=== PATIENT | male | born 1930 | race Caucasian/White ===

== ENCOUNTER 2017-04-25 14:34 | Emergency (ER) | payer MEDICARE, OTHER ==
[~2017-04-25] VITALS: Ht 172.7 cm; Wt 70.0 kg
[~2017-04-25 14:34] MED LIST: PRED5DRO7 RIGHTEYE; TIMO15DR12 RIGHTEYE
[2017-04-25] MEDS ORDERED: IPRATROPIUM BROMIDE (0.02%) 0.5MG/2.5ML NEB HHN STA (15:01)
[2017-04-25] MEDS ORDERED: ALBUTEROL (0.083%) 2.5MG/3ML NEB HHN STA (15:01)
[2017-04-25 15:25] LABS: HEMATOCRIT. 37.8 % (42.0-52.0); HEMOGLOBIN. 12.8 g/dL (14.0-18.0); MEAN CORPUSCULAR HEMOGLOBIN 33.2 pg (28.0-32.0); MEAN CORPUSCULAR VOLUME 97.7 fL (80.0-94.0); MEAN PLATELET VOLUME 7.2 fl (7.4-10.4); PLATELET 206 x1000/uL (130-400); RED BLOOD CELL COUNT 3.87 mill/uL (4.7-6.1); RED CELL DISTRIBUTION WIDTH 14.2 % (11.6-14.6)
[2017-04-25 15:29] LABS: CHLORIDE 100 mEq/L (98-107)
[2017-04-25 15:30] LABS: PROTHROMBIN TIME 10.7 sec (9.4-11.6)
[2017-04-25 15:37] LABS: CARBON DIOXIDE 27 mEq/L (21-32)
[2017-04-25 15:52] LABS: PLATELET ESTIMATE NORMAL
[2017-04-25 16:11] VITALS: BP 151/87
== END 2017-04-25 16:47 | disposition home or self-care (01) ==
LOC: ER 15:15
DX: R05 Cough (principal); J44.9 Chronic obstructive pulmonary disease, unspecified; E78.00 Pure hypercholesterolemia, unspecified; E11.9 Type 2 diabetes mellitus without complications; I10 Essential (primary) hypertension; Z87.891 Personal history of nicotine dependence
CPT/HCPCS: 36415; 71010; 80053; 85025; 85610; 93005; 94640; 99285; J7611

== ENCOUNTER 2018-06-16 17:09 | Inpatient (IN) | payer MEDICARE, OTHER ==
[~2018-06-16] VITALS: Ht 175.3 cm; Wt 65.8 kg
[2018-06-16] MEDS ORDERED: SODIUM CHLORIDE 0.9% 1000ML BAG (SEPSIS BOLUS) IV ONE ×2 (17:45→21:45)
[2018-06-16] MEDS ORDERED: IPRATROPIUM BROMIDE (0.02%) 0.5MG/2.5ML NEB HHN STA (17:46)
[2018-06-16] MEDS ORDERED: ALBUTEROL (0.083%) 2.5MG/3ML NEB HHN STA (17:46)
[2018-06-16] MEDS ORDERED: METHYLPREDNISOLONE SOD SUCC 125 MG/2 ML VIAL IV STA (17:46)
[2018-06-16 18:11] LABS: BASOPHILS % 0.2 % (0.0-2.0); EOSINOPHILS % 0.1 % (0.0-5.0); HEMATOCRIT. 37.6 % (42.0-52.0); HEMOGLOBIN. 12.9 g/dL (14.0-18.0); LYMPHOCYTES % 16.3 % (20.0-50.0); MEAN CORPUSCULAR HEMOGLOBIN 33.9 pg (28.0-32.0); MEAN CORPUSCULAR VOLUME 98.4 fL (80.0-94.0); MEAN PLATELET VOLUME 8.2 fl (7.4-10.4); MONOCYTES % 7.1 % (2.0-8.0); NEUTROPHILS % 76.3 % (40.0-76.0); PLATELET 161 x1000/uL (130-400); RED BLOOD CELL COUNT 3.82 mill/uL (4.7-6.1); RED CELL DISTRIBUTION WIDTH 13.8 % (11.6-14.6)
[2018-06-16 18:16] LABS: CHLORIDE 107 mEq/L (98-107)
[2018-06-16 20:00] LABS: CLARITY URINE CLEAR (CLEAR); COLOR URINE DARK YELLOW (YELLOW); KETONES URINE 1+ (NEGATIVE); LEUKOCYTE ESTERASE URINE TRACE (NEGATIVE); NITRITE URINE POSITIVE (NEGATIVE); OCCULT BLOOD URINE NEGATIVE (NEGATIVE); PH URINE 5.5 (4.5-8.0); PROTEIN URINE 2+ (NEGATIVE); SPECIFIC GRAVITY URINE 1.024 (1.005-1.030)
[2018-06-16] MEDS ORDERED: LEVOFLOXACIN 750MG PREMIX 150 ML IV ONE (20:15)
[2018-06-16] MEDS ORDERED: LORAZEPAM 2MG/ML CPJ IV ONE (20:45)
[2018-06-17 04:10] VITALS: BP 155/65
[2018-06-17] MEDS ORDERED: LEVOFLOXACIN 500MG PREMIX 100 ML IV SCH (05:30)
[2018-06-17] MEDS ORDERED: DEXTROSE 50% WATER 50ML SYRINGE IV PRN (05:30)
[2018-06-17 05:55] VITALS: BP 155/65
[2018-06-17] MEDS ORDERED: DOCU250C69 MT (06:26)
[2018-06-17] MEDS ORDERED: DUTA0.5C15 PO (06:26)
[2018-06-17] MEDS ORDERED: TIMO5SOL9 EACHEYE (06:26)
[2018-06-17] MEDS ORDERED: BRIM5DRO RIGHTEYE (06:26)
[2018-06-17] MEDS ORDERED: ATOR40TA70 PO (06:26)
[2018-06-17] MEDS: BLOOD SUGAR DIAGNOSTIC STRIP TEST SCH ×4 (07:45→22:06)
[2018-06-17] MEDS: INSULIN LISPRO 100 UNITS/ML SUBCUT SCH ×4 (07:45→22:10)
[2018-06-17 08:00] VITALS: BP 157/89
[2018-06-17] MEDS ORDERED: TIMOLOL MALEATE 0.5% OPHTH DROPS 5ML EACHEYE SCH (09:00)
[2018-06-17] MEDS ORDERED: MEDICATION NOT ON FORMULARY EA (Docusate Sodium 1 CAP) MT SCH (09:00)
[2018-06-17] MEDS: DOCUSATE SODIUM 100MG CAPSULE PO SCH ×2 (09:00→09:33)
[2018-06-17] MEDS: DUTASTERIDE 0.5MG CAPSULE PO SCH ×2 (09:00→09:33)
[2018-06-17] MEDS ORDERED: ENOXAPARIN 40MG/0.4ML SYR SUBCUT SCH (09:00)
[2018-06-17] MEDS ORDERED: MEDICATION NOT ON FORMULARY EA (Timolol Maleate 1 DROP) EACHEYE SCH (09:00)
[2018-06-17] MEDS ORDERED: MEDICATION NOT ON FORMULARY EA (Brimonidine Tartrate (Alphagan P) 1 DROP) RIGHTEYE SCH (09:00)
[2018-06-17] MEDS: BRIMONIDINE 0.2% OPHTH DROPS 5ML RIGHTEYE SCH ×2 (09:00→18:40)
[2018-06-17] MEDS: DEXT 5%/0.45% NACL 1000ML 1,000 ML IV SCH ×2 (09:34→23:08)
[2018-06-17] MEDS: AMLODIPINE 5MG TABLET PO SCH (09:44)
[2018-06-17 09:46] LABS: HEMATOCRIT. 36.1 % (42.0-52.0); HEMOGLOBIN. 12.2 g/dL (14.0-18.0); MEAN CORPUSCULAR HEMOGLOBIN 33.5 pg (28.0-32.0); MEAN CORPUSCULAR VOLUME 99.3 fL (80.0-94.0); MEAN PLATELET VOLUME 8.3 fl (7.4-10.4); PLATELET 136 x1000/uL (130-400); RED BLOOD CELL COUNT 3.63 mill/uL (4.7-6.1); RED CELL DISTRIBUTION WIDTH 13.5 % (11.6-14.6)
[2018-06-17] MEDS: IPRATROPIUM/ALBUTEROL 0.5-3(2.5)MG/3ML NEB HHN SCH ×4 (09:54→20:13)
[2018-06-17 11:34] LABS: CHLORIDE 112 mEq/L (98-107)
[2018-06-17 12:00] VITALS: BP 146/75
[2018-06-17 16:00] VITALS: BP 129/63
[2018-06-17 20:25] VITALS: BP 129/72
[2018-06-17] MEDS ORDERED: LEVOFLOXACIN 250MG PREMIX 50 ML IV SCH (21:00)
[2018-06-17] MEDS: ATORVASTATIN CALCIUM 40MG TABLET PO SCH (21:00)
[2018-06-18] VITALS: BP 102/57
[2018-06-18] MEDS: IPRATROPIUM/ALBUTEROL 0.5-3(2.5)MG/3ML NEB HHN SCH ×6 (00:32→21:48)
[2018-06-18 01:41] LABS: PLATELET ESTIMATE NORMAL
[2018-06-18 04:47] VITALS: BP 116/77
[2018-06-18] MEDS: LORAZEPAM 2MG/ML CPJ IV PRN (06:05)
[2018-06-18] MEDS: ENOXAPARIN 60MG/0.6ML SYR SUBCUT SCH ×2 (06:06→18:45)
[2018-06-18] MEDS: BLOOD SUGAR DIAGNOSTIC STRIP TEST SCH ×4 (06:33→21:01)
[2018-06-18] MEDS: INSULIN LISPRO 100 UNITS/ML SUBCUT SCH ×4 (07:50→21:00)
[2018-06-18 08:02] VITALS: BP 138/67
[2018-06-18 08:08] LABS: HEMATOCRIT. 32.6 % (42.0-52.0); HEMOGLOBIN. 11.4 g/dL (14.0-18.0); MEAN CORPUSCULAR HEMOGLOBIN 34.1 pg (28.0-32.0); MEAN CORPUSCULAR VOLUME 97.3 fL (80.0-94.0); MEAN PLATELET VOLUME 8.7 fl (7.4-10.4); PLATELET 150 x1000/uL (130-400); RED BLOOD CELL COUNT 3.35 mill/uL (4.7-6.1); RED CELL DISTRIBUTION WIDTH 13.5 % (11.6-14.6)
[2018-06-18] MEDS: DUTASTERIDE 0.5MG CAPSULE PO SCH (09:00)
[2018-06-18] MEDS: DOCUSATE SODIUM 100MG CAPSULE PO SCH (09:00)
[2018-06-18] MEDS: AMLODIPINE 5MG TABLET PO SCH (09:00)
[2018-06-18] MEDS: BRIMONIDINE 0.2% OPHTH DROPS 5ML RIGHTEYE SCH ×2 (09:00→17:00)
[2018-06-18 09:11] LABS: PLATELET ESTIMATE NORMAL
[2018-06-18 09:40] LABS: CHLORIDE 107 mEq/L (98-107)
[2018-06-18 12:08] VITALS: BP 139/79
[2018-06-18] MEDS: DEXT 5%/0.45% NACL 1000ML 1,000 ML IV SCH (13:44)
[2018-06-18] MEDS ORDERED: IPRATROPIUM/ALBUTEROL 0.5-3(2.5)MG/3ML NEB HHN PRN (14:30)
[2018-06-18 15:43] VITALS: BP 112/72
[2018-06-18] MEDS: CEFTRIAXONE 1 G PREMIX 50 ML IV SCH (17:25)
[2018-06-18 20:00] VITALS: BP 99/63
[2018-06-18] MEDS: ATORVASTATIN CALCIUM 40MG TABLET PO SCH (21:00)
[2018-06-18] MEDS ORDERED: POTASSIUM CHLORIDE INJ 40 MEQ in DEXT 5% WATER 250 ML IV SCH (21:30)
[2018-06-19] VITALS (9 sets, daily range): BP systolic 103–130; BP diastolic 56–90
[2018-06-19] MEDS: KCL 20MEQ/100ML PREMIX 100 ML IV SCH ×2 (00:12→02:01)
[2018-06-19] MEDS: IPRATROPIUM/ALBUTEROL 0.5-3(2.5)MG/3ML NEB HHN SCH ×6 (01:09→20:34)
[2018-06-19] MEDS: DEXT 5%/0.45% NACL 1000ML 1,000 ML IV SCH ×2 (02:02→12:13)
[2018-06-19] MEDS: LORAZEPAM 2MG/ML CPJ IV PRN (02:16)
[2018-06-19] MEDS: ENOXAPARIN 60MG/0.6ML SYR SUBCUT SCH ×2 (05:13→17:03)
[2018-06-19 07:04] LABS: BASOPHILS % 0.1 % (0.0-2.0); EOSINOPHILS % 0.2 % (0.0-5.0); HEMATOCRIT. 34.3 % (42.0-52.0); HEMOGLOBIN. 11.8 g/dL (14.0-18.0); LYMPHOCYTES % 17.2 % (20.0-50.0); MEAN CORPUSCULAR HEMOGLOBIN 33.7 pg (28.0-32.0); MEAN CORPUSCULAR VOLUME 98.2 fL (80.0-94.0); MEAN PLATELET VOLUME 8.5 fl (7.4-10.4); MONOCYTES % 8.9 % (2.0-8.0); NEUTROPHILS % 73.6 % (40.0-76.0); PLATELET 146 x1000/uL (130-400); RED BLOOD CELL COUNT 3.49 mill/uL (4.7-6.1); RED CELL DISTRIBUTION WIDTH 13.6 % (11.6-14.6)
[2018-06-19] MEDS: INSULIN LISPRO 100 UNITS/ML SUBCUT SCH ×4 (07:06→21:00)
[2018-06-19 08:03] LABS: CHLORIDE 109 mEq/L (98-107)
[2018-06-19] MEDS: DUTASTERIDE 0.5MG CAPSULE PO SCH (08:14)
[2018-06-19] MEDS: DOCUSATE SODIUM 100MG CAPSULE PO SCH (08:14)
[2018-06-19] MEDS: BLOOD SUGAR DIAGNOSTIC STRIP TEST SCH ×4 (08:14→21:31)
[2018-06-19] MEDS: AMLODIPINE 5MG TABLET PO SCH (08:15)
[2018-06-19] MEDS: BRIMONIDINE 0.2% OPHTH DROPS 5ML RIGHTEYE SCH ×2 (08:15→17:02)
[2018-06-19] MEDS: CEFTRIAXONE 1 G PREMIX 50 ML IV SCH (17:02)
[2018-06-19] MEDS: ATORVASTATIN CALCIUM 40MG TABLET PO SCH (21:00)
[2018-06-20] VITALS (7 sets, daily range): BP systolic 105–145; BP diastolic 69–96
[2018-06-20] MEDS: DEXT 5%/0.45% NACL 1000ML 1,000 ML IV SCH ×2 (00:10→08:30)
[2018-06-20] MEDS: IPRATROPIUM/ALBUTEROL 0.5-3(2.5)MG/3ML NEB HHN SCH ×4 (00:39→13:22)
[2018-06-20] MEDS: LORAZEPAM 2MG/ML CPJ IV PRN (00:59)
[2018-06-20] MEDS: ENOXAPARIN 60MG/0.6ML SYR SUBCUT SCH (06:01)
[2018-06-20] MEDS: BLOOD SUGAR DIAGNOSTIC STRIP TEST SCH ×2 (06:36→12:14)
[2018-06-20] MEDS: INSULIN LISPRO 100 UNITS/ML SUBCUT SCH ×2 (07:14→12:15)
[2018-06-20] MEDS: BRIMONIDINE 0.2% OPHTH DROPS 5ML RIGHTEYE SCH (08:28)
[2018-06-20] MEDS: DUTASTERIDE 0.5MG CAPSULE PO SCH (08:29)
[2018-06-20] MEDS: AMLODIPINE 5MG TABLET PO SCH (08:33)
[2018-06-20] MEDS ORDERED: DOCUSATE SODIUM SUGAR FREE 100MG/10ML UDC NG SCH (09:00)
== END 2018-06-20 16:31 | DRG 853 ==
LOC: ER 17:09 → 6WST 21:47 → EDBEDREQTM 21:49 → EDBEDREQ 21:49 → ENRESERV 06-17 03:31
PROVIDERS: ADMIT Specialist; ATTEND Specialist
PROC: 0JB90ZZ Excision of Buttock Subcutaneous Tissue and Fascia, Open Approach (ICD-10-PCS; principal; 2018-06-18)
DX: A41.51 Sepsis due to Escherichia coli [E. coli] (principal); E43 Unspecified severe protein-calorie malnutrition; E87.0 Hyperosmolality and hypernatremia; F03.91 Unspecified dementia, unspecified severity, with behavioral disturbance; G93.40 Encephalopathy, unspecified; J44.1 Chronic obstructive pulmonary disease with (acute) exacerbation; N39.0 Urinary tract infection, site not specified; L98.419 Non-pressure chronic ulcer of buttock with unspecified severity; E11.9 Type 2 diabetes mellitus without complications; E78.00 Pure hypercholesterolemia, unspecified; E78.5 Hyperlipidemia, unspecified; E83.42 Hypomagnesemia; E86.0 Dehydration; E87.6 Hypokalemia; H91.90 Unspecified hearing loss, unspecified ear; I11.9 Hypertensive heart disease without heart failure; I48.91 Unspecified atrial fibrillation; M24.50 Contracture, unspecified joint; D64.9 Anemia, unspecified; I49.3 Ventricular premature depolarization; N40.0 Benign prostatic hyperplasia without lower urinary tract symptoms; R62.7 Adult failure to thrive; I69.320 Aphasia following cerebral infarction; Z78.1 Physical restraint status; Z91.81 History of falling; Z68.21 Body mass index [BMI] 21.0-21.9, adult; Z79.899 Other long term (current) drug therapy
CPT/HCPCS: 36415; 71045; 80048; 82962; 83605; 83735; 83880; 84443; 84484; 87077; 87186; 92610; 93005; 93306; 94640; 94644; 96361; 96365; 96366; 96375; 97165; 99285; J0696; J1650; J1815; J1956; J2060; J2930; J3480; J3490; J7030; J7060; J7611; J7620; A4315